=== PATIENT | female | born 1995 | race Caucasian/White ===

== ENCOUNTER 2016-05-11 14:10 | Emergency (ER) | payer MEDICAID ==
[2015-09-15 07:53] VITALS: BMI 37.0
[~2016-05-11 14:10] MED LIST: FERROUS SULFAT325 MG PO; IBUPROFEN600 MG PO; PERCOCET 5-3251 TAB PO; PROCARDIA XL PO
== END 2016-05-11 15:13 | disposition left against medical advice (07) ==
LOC: D.ER 14:10
DX: R10.84 Generalized abdominal pain (principal)